=== PATIENT | male | born 1990 | race Caucasian/White ===

== ENCOUNTER 2019-08-21 13:02 | Emergency (ER) | payer OTHER ==
[~2019-08-21] VITALS: Ht 185.4 cm; Wt 62.0 kg
[2019-08-21] MEDS ORDERED: PRED20TA PO (14:07)
[2019-08-21] MEDS ORDERED: predniSONE 20 mg tablet PO ONE (14:10)
[2019-08-21 14:26] VITALS: BP 139/86
== END 2019-08-21 14:28 | disposition home or self-care (01) ==
LOC: ER 13:03
DX: L23.7 Allergic contact dermatitis due to plants, except food (principal); F10.99 Alcohol use, unspecified with unspecified alcohol-induced disorder; Z79.899 Other long term (current) drug therapy; Y90.9 Presence of alcohol in blood, level not specified
CPT/HCPCS: 99283; J7512

== ENCOUNTER 2024-01-05 10:49 | Emergency (ER) | payer MEDICAID ==
[~2024-01-05] VITALS: Ht 185.4 cm; Wt 65.6 kg
[2024-01-05 10:58] VITALS: BP 156/99; PULSE 106; RESP 18; TEMP 98.7; O2SAT 99
[2024-01-05] MEDS ORDERED: CLIN-97 PO (20:08)
== END 2024-01-05 14:32 | disposition left against medical advice (07) ==
LOC: ER 10:50
DX: K08.89 Other specified disorders of teeth and supporting structures (principal); Z53.21 Procedure and treatment not carried out due to patient leaving prior to being seen by health care provider

== ENCOUNTER 2024-01-05 19:31 | Emergency (ER) | payer MEDICAID ==
[~2024-01-05] VITALS: Ht 185.4 cm; Wt 64.0 kg
[2024-01-05] MEDS: CefTRIAXone 1000mg IM Kit (w/lidocaine diluent) IM ONE (19:54)
[2024-01-05] MEDS ORDERED: CLIN-97 PO (20:08)
[2024-01-05 20:22] VITALS: BP 136/90; PULSE 102; RESP 16; TEMP 99.2; O2SAT 100
== END 2024-01-05 20:26 | disposition home or self-care (01) ==
LOC: ER 19:32
DX: K04.7 Periapical abscess without sinus (principal); Z88.5 Allergy status to narcotic agent
CPT/HCPCS: 96372; 99283; J0696